=== PATIENT | male | born 1945 | race Caucasian/White ===

== ENCOUNTER 2021-11-03 11:14 | Emergency (ER) | payer MEDICARE, BC, SELFPAY ==
[2021-11-03 11:22] VITALS: BP 117/84; PULSE 60; RESP 20; TEMP 36.7; O2SAT 95
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
== END 2021-11-03 13:23 | disposition home or self-care (01) ==
PROVIDERS: Emergency Provider Physician Assistant
DX: S42.032A Displaced fracture of lateral end of left clavicle, initial encounter for closed fracture (principal); S40.811A Abrasion of right upper arm, initial encounter; S40.812A Abrasion of left upper arm, initial encounter; S80.812A Abrasion, left lower leg, initial encounter; V18.4XXA Pedal cycle driver injured in noncollision transport accident in traffic accident, initial encounter
CPT/HCPCS: 99283; 73030; 99284